=== PATIENT | male | born 1995 | race Hispanic/Latino ===

== ENCOUNTER 2018-11-21 15:00 | Emergency (ER) | payer MEDICARE ==
[2018-11-21] MEDS ORDERED: IBUPROFEN 600 MG TABLET ONE (15:29)
[2018-11-21] MEDS ORDERED: IBUPROFEN 100 MG/5 ML SUSP UDCUP ONE (15:38)
== END 2018-11-21 16:28 | disposition home or self-care (01) ==
LOC: EDH 15:00
DX: S63.92XA Sprain of unspecified part of left wrist and hand, initial encounter (principal); M25.522 Pain in left elbow; E11.9 Type 2 diabetes mellitus without complications; V86.59XA Driver of other special all-terrain or other off-road motor vehicle injured in nontraffic accident, initial encounter; Y93.89 Activity, other specified; Y92.89 Other specified places as the place of occurrence of the external cause; Y99.8 Other external cause status
CPT/HCPCS: 73090; 73110; 73130

== ENCOUNTER → 2021-02-17 | Outpatient (CLI) | payer MEDICARE | END | disposition home or self-care (01) | LOC: RAH 09:19 | PROVIDERS: ATTEND Internal Medicine | DX: R74.8 Abnormal levels of other serum enzymes (principal); R16.0 Hepatomegaly, not elsewhere classified; K76.0 Fatty (change of) liver, not elsewhere classified | CPT/HCPCS: 76705 ==

== ENCOUNTER → 2022-03-03 | Outpatient (CLI) | payer MEDICARE | END | disposition home or self-care (01) | LOC: RAH 07:52 | PROVIDERS: ATTEND Internal Medicine | DX: M25.551 Pain in right hip (principal) | CPT/HCPCS: 73502 ==